=== PATIENT | male | born 1960 | race Two or more races ===

== ENCOUNTER 2019-02-07 15:58 | Emergency (ER) | payer MEDICAID, OTHER ==
[~2019-02-07] VITALS: Ht 165.1 cm; Wt 74.8 kg
[2019-02-07] MEDS ORDERED: cloNIDine HCL 0.1 MG TAB ONE (16:29)
[2019-02-07] MEDS ORDERED: cloNIDine HCL 0.1 MG TAB PO ONE (16:30)
[2019-02-07 17:16] LABS: Basophils # (auto) 0.1 uL; Basophils % (auto) 0.5 % (0.0-2.0); Eosinophils # (auto) 0.3 uL; Eosinophils % (auto) 2.8 % (0.0-7.0); Hematocrit 46.8 % (41.0-53.0); Hemoglobin 15.8 g/dL (13.5-17.5); Lymphocytes # (auto) 3.3 uL; Lymphocytes % (auto) 33.4 % (10.0-50.0); Mean Corpuscular Hemoglobin 31.1 pg (28.0-32.0); Mean Corpuscular Hgb Conc. 33.8 g/dL (32.0-36.0); Mean Corpuscular Volume 92.1 fL (80.0-100.0); Monocytes # (auto) 0.7 uL; Neutrophils # (auto) 5.5 uL; Neutrophils % (auto) 56.3 % (37.0-80.0); Nucleated Red Blood Cells % 0.1 %; Platelet Count (auto) 213 10^3/uL (140-450); Red Blood Cells 5.08 10^6/uL (4.5-5.90); Red Cell Distribution Width 13.1 % (11.8-14.3); White Blood Cell 9.7 10^3/uL (4.4-10.8)
[2019-02-07 17:26] LABS: Albumin 3.6 g/dL (3.4-5.0)
[2019-02-07 17:28] LABS: BUN/Creatinine Ratio 15.4
[2019-02-07 17:38] LABS: Bilirubin, Total 0.7 mg/dL (0.2-1.0); Total Protein 7.6 g/dL (6.4-8.2)
[2019-02-07 18:11] VITALS: BP 141/101
== END 2019-02-07 18:15 | disposition home or self-care (01) ==
LOC: ER 16:01
DX: I10 Essential (primary) hypertension (principal); R51 Headache
CPT/HCPCS: 36415; 80053; 84484; 85025; 93005